=== PATIENT | male | born 1990 | race African-American/Black ===

== ENCOUNTER 2022-02-25 05:02 | Emergency (ER) | payer OTHER ==
--- NOTE | 2022-02-25 05:08 | ED Physician Documentation ---
PD HPI LOWER EXT INJURY - Stated complaint Stated Complaint: FALL/TWISTED LT ANKLE - History obtained from History obtained from: Patient - History of Present Illness PD HPI LOW EXT INJURY LOCATION: Left, Ankle Type of injury: Twist (inversion mechanism when jumped up doing sports.) Timing - onset: Yesterday Timing - details: Abrupt onset, Still present Associated symptoms: Swelling. No: Weakness, Numbness, Discolored Similar symptoms before: Has not had sx before Review of Systems Skin: denies: Abrasion (s), Laceration (s) Neurologic: denies: Focal weakness, Numbness PD PAST MEDICAL HISTORY - Past Medical History Musculoskeletal: None - Present Medications Home Medications: Ambulatory Orders Medication Instructions Recorded Confirmed Ibuprofen [Motrin] 600 mg PO TID PRN #25 tab 02/25/22 Lanolin [Skin Protectant] 1 applic TP BID #113 gm 02/25/22 Nystatin 1 applic TP BID 30 Days #30 gm 02/25/22 - Allergies Allergies/Adverse Reactions: Allergies Allergy/AdvReac Type Severity Reaction Status Date / Time No Known Drug Allergies Allergy Verified 02/25/22 05:15 PD ED PE NORMAL - Vitals Vital signs reviewed: Yes - General General: Alert and oriented X 3, Well developed/nourished, Other (Limping gait favoring the left ankle with reduced motion.) - Derm Derm: Normal color, Warm and dry - Extremities Extremities: Other (The left ankle shows tenderness with swelling focally over the anterolateral aspect. The Achilles and medial aspect are nontender. Mild effusion in the lateral aspect of the ankle. Normal color and capillary refill in the toes. Inversion stress testing without any noted laxity but it did hurt.) - Neuro Neuro: Alert and oriented X 3, No motor deficit, No sensory deficit Results - Vitals Vitals: Vital Signs - 24 hr 02/25/22 05:13 Temperature 36.0 C L Heart Rate 82 Respiratory 15 Rate Blood Pressure 149/83 H O2 Saturation 98 Oxygen O2 Source Room air - Rads (name of study) left ankle Radiology: Prelim report reviewed, EMP read indepedently (no fracture), See rad report PD Medical Decision Making - ED course Complexity details: reviewed results (X-ray of the ankle was ordered and reviewed by myself to evaluate for fracture. No fracture seen on x-ray. He does however have pain with ambulation. No gross instability of the ankle. However we will treated for ankle sprain with the Aircast. Will help his symptoms of painful gait with crutches), considered differential (Inversion mechanism with concern of fracture versus sprain. Will evaluate with x-ray.), d/w patient Departure - Departure Disposition: 01 Home, Self Care Clinical Impression: Skin yeast infection Left ankle sprain Qualifiers: Encounter type: initial encounter Involved ligament of ankle: anterior talofibular ligament Qualified Code(s): S93.492A - Sprain of other ligament of left ankle, initial encounter Condition: Stable Record reviewed to determine appropriate education?: Yes Instructions: ED Sprain Ankle Prescriptions: Ibuprofen [Motrin] 600 mg PO TID PRN #25 tab PRN Reason: Pain Nystatin 1 applic TP BID 30 Days #30 gm Lanolin [Skin Protectant] 1 applic TP BID #113 gm Comments: Your ankle x-ray is normal without any signs of fracture nor dislocation. It does seem like an ankle sprain. You can use the Aircast ankle brace certainly when up and around walking for the next 2 to 3 weeks until this feels fully healed and does not hurt with out support. In the short-term you can use the crutches for partial to no weightbearing as needed for discomfort. Its okay to progress weightbearing as tolerated to normal walking and then activity but I would have the ankle supported with the ankle brace or taping or such for again about 2 to 3 weeks to reduce the chance of reinjury. Recheck if not improving well over the next week to 10 days and resolved by 2 to 3 weeks. To help with the discomfort and swelling, try to ice elevate and rest the ankle often the next couple of days. You can use some ibuprofen 3 times daily with food to help with the pain and swelling. Add Tylenol if needed. Regarding your scaly rash on the heels, it most likely is an irritation from rubbing in the area (a callus). However the scaliness and thickening of it looks likely to have a bit of a yeast infection that has worked into the area as well (athlete's foot). I would suggest continuing to scraped or rub the thickened skin off as best you can and then applying some nystatin and antifungal medication lightly to the area once or twice daily. Over that then use a protective skin emollient such as lanolin or bag balm or similar. I would anticipate this improving over a couple of weeks or so 4 to be well improved. He want to continue with the skin lotion or lanolin type medicine long-term as well to keep it from building up again. Follow-up with your primary care if not improving well in the above time frames. Forms: Activity restrictions Discharge Date/Time: 02/25/22 06:11
[2022-02-25 05:17] VITALS: BP 149/83
[2022-02-25] MEDS ORDERED: ACETAMINOPHEN 325 MG TABLET PO STA (05:24)
[2022-02-25] MEDS ORDERED: IBUPROFEN 800 MG TABLET PO STA (05:24)
--- NOTE | 2022-02-25 08:18 | XRAY Report ---
PROCEDURE: Ankle 3 View LT INDICATIONS: JUMPED/LANDED L FOOT/ANKLE.PAIN/SWELLING TECHNIQUE: 3 views of the ankle were acquired. COMPARISON: None FINDINGS: Bones: No fractures or dislocations. Ankle mortise is normally aligned. No suspicious bony lesions . Soft tissues: No tibiotalar joint effusion. Achilles tendon appears normal. IMPRESSION: No acute fracture. No osseous lesion. If symptoms and/or clinical suspicion for patholog y continue, further assessment with repeat plain films, or advanced imaging (e.g., CT, MRI, or bone s can) is recommended for further assessment. Concordant with preliminary interpretation. Reviewed by: Jack Baker MD on 02/25/2022 8:17 AM PST Approved by: Jack Baker MD on 02/25/2022 8:17 AM PST Station ID: [id number]
== END 2022-02-25 06:11 | disposition home or self-care (01) ==
LOC: ED 05:02
DX: S93.492A Sprain of other ligament of left ankle, initial encounter (principal); B37.2 Candidiasis of skin and nail; X50.1XXA Overexertion from prolonged static or awkward postures, initial encounter; Y93.39 Activity, other involving climbing, rappelling and jumping off
CPT/HCPCS: 73610; 99283; 99284; A9270